=== PATIENT | female | born 1970 | race Caucasian/White ===

== ENCOUNTER 2020-07-30 19:49 | Emergency (ER) | payer OTHER ==
[~2020-07-30] VITALS: Ht 165.1 cm; Wt 77.1 kg
[2020-07-30 20:10] LABS: ABSOLUTE LYMPHOCYTES 4.1 thou/uL (0.8-5.3); ABSOLUTE MONOCYTES 0.8 thou/uL (0.0-1.2); BASOPHILS 0.3 %; HEMATOCRIT 44.6 % (37.0-47.0); HEMOGLOBIN 14.7 gm/dL (12.0-15.0); LYMPHOCYTES 34.1 %; MCH 30.8 pg (26.0-34.0); MCHC 33.1 g/dL (28.0-37.0); MCV 93.2 fL (80.0-100.0); MONOCYTES 6.9 %; MPV 7.8 fl. (7.2-11.1); NUCLEATED RBCS 0 /100WBC; PLATELET COUNT* 305 thou/uL (150-400); POLYS 58.7 %; RBC 4.78 mil/uL (4.20-5.00); RDW-CV 13.2 % (10.5-14.5); WBC 11.9 thou/uL (4.0-11.0)
[2020-07-30 20:22] LABS: CALCIUM 8.3 mg/dL (8.5-10.1); POTASSIUM 3.3 mmol/L (3.5-5.1)
[2020-07-30 20:24] LABS: PROTIME 10.3 Seconds (9.20-11.50)
[2020-07-30 20:36] LABS: MAGNESIUM 2.2 mg/dL (1.8-2.4); TOTAL BILIRUBIN 0.2 mg/dL (<0.1-1.0)
[2020-07-30 21:16] LABS: URINE BILIRUBIN NEGATIVE (Negative); URINE BLOOD 2+ (Negative); URINE CLARITY CLEAR; URINE COLOR YELLOW; URINE GLUCOSE-RANDOM NEGATIVE (Negative); URINE KETONES NEGATIVE (Negative); URINE LEUKOCYTES-REFLEX NEGATIVE (Negative); URINE NITRITE-REFLEX NEGATIVE (Negative); URINE PROTEIN NEGATIVE (Negative); URINE SPECIFIC GRAVITY 1.015 (1.005-1.030); URINE UROBILINOGEN 0.2 E.U./dl (0.2-1.0)
[2020-07-30] MEDS ORDERED: XANAX 0.5 MG0.5 M1 PO (21:21)
[2020-07-30 21:27] LABS: CASTS None Seen /LPF (None Seen); SQUAMOUS >10 Many /LPF (0-3)
[2020-07-30 21:28] LABS: BACTERIA-REFLEX 1-9 Few /HPF (None Seen); CRYSTALS None Seen /LPF (None Seen); URINE RBC 3-10 Few /HPF (0-2); URINE WBC-REFLEX 0-5 Rare /HPF (0-5)
[2020-07-30 21:32] VITALS: BP 155/100
--- NOTE | 2020-07-31 09:41 | EKG ---
[place] [address] ELECTROCARDIOGRAM REPORT Name: KT LOTT Room: [facility]#: [id number] Admission: 07/30/20 Attend Phys: Discharge: 07/30/20 Date of : 72 Date of Service: 07/30/20 [facility] Report #: [id number] THIS REPORT FOR: //name// [facility] ED Test Date: 2020-07-30 Test Time: 19:50:29 Pat Name: KT LOTT Department: Room: Gender: F Mover: : 1970 Requested By: Joann Melchor Order Number: [id number] MD: Martinez Blount Measurements Intervals [place] Rate: 100 P: 48 UT: 158 QRS: 70 QRSD: 86 T: 60 QT: 341 QTc: 440 Interpretive Statements Sinus tachycardia Baseline wander in lead(s) V2,V4,V5 No previous ECG available for comparison Electronically Signed On 07-31-2020 9:41:26 [employer]ERILE TECHNICIAN by Martinez Blount [email or web address] <ELECTRONICALLY SIGNED> By: Martinez Blount MD, [facility] 07/31/20 0941 1950 1950 Martinez Blount MD, FAC /EPI
== END 2020-07-30 21:39 | disposition home or self-care (01) ==
LOC: M.ERS 19:49
PROVIDERS: Emergency Medicine
DX: F10.920 Alcohol use, unspecified with intoxication, uncomplicated (principal); F43.29 Adjustment disorder with other symptoms; Y90.9 Presence of alcohol in blood, level not specified